=== PATIENT | female | born 1960 | race Caucasian/White ===

== ENCOUNTER → 2016-10-21 | Outpatient (RCR) ==
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
== END ==
PROVIDERS: ATTEND Physician Assistant
DX: M25.521 Pain in right elbow (principal); M19.121 Post-traumatic osteoarthritis, right elbow

== ENCOUNTER 2016-10-28 15:00 | Outpatient (RCR) ==
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
== END 2016-11-20 ==
PROVIDERS: ATTEND Physician Assistant
DX: M25.521 Pain in right elbow (principal); M19.121 Post-traumatic osteoarthritis, right elbow